=== PATIENT | female | born 1960 | race Caucasian/White ===

== ENCOUNTER 2023-05-26 17:43 | Emergency (ER) | payer MEDICAID ==
[2023-05-26 19:57] LABS: Appearance Cloudy (Clear); Bacteria Many /HPF (None Seen); Bilirubin Negative (Negative); Blood Negative (Negative); Epithelial Cells Few /HPF (None Seen); Glucose, Urine Negative (Negative); Hyaline Casts NONE SEEN /LPF (0-2); Ketones 15 (Negative); Leukocyte Esterase Large (Negative); Nitrite Positive (Negative); Ph 7.5 (4.6-8.0); Protein,Urine Dip Trace (Negative); RBC 0-2 /HPF (0-5); WBC 21-50 /HPF (0-5)
[2023-05-26 19:58] LABS: ADD URINE CULTURE? YES (NO)
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
[2023-05-26 20:08] LABS: Absolute Neutrophil Ct (ANC) 7.59 x10^3/uL (1.4-6.9); BASOPHIL % 0.3 % (0.0-0.4); Basophil (Absolute #) 0.03 x10^3/uL (0-0.4); Hematocrit 33.9 % (35-47); Hemoglobin 10.9 g/dL (12.0-16.0); IMMATURE GRAN # 0.02 x10^3u/L (0.00-0.03); IMMATURE GRAN % 0.2 % (0.00-0.4); Lymphocyte (Absolute #) 1.98 x10^3/uL (1.0-4.6); Mean Cell Volume 88.1 fL (78-100); Mean Corpuscular Hemoglobin 28.3 pg (26-32); Mean Corpuscular Hgb Concent. 32.2 g/dL (32-36); Mean Platelet Volume 10.4 fL (7.5-11.0); Monocyte (Absolute #) 0.69 x10^3/uL (0.0-1.3); Monocytes % 6.6 % (0.0-12.0); Neutrophil % 72.9 % (36.0-66.0); Platelet Count 337 x10^3/uL (150-450); Red Blood Count 3.85 x10^6/uL (4.1-5.4); Red Cell Distribution Width 13.4 % (11.5-14.0); White Blood Count 10.4 x10^3/uL (4.0-10.5)
[2023-05-26] MEDS ORDERED: ROCEPHIN 1 Gm-D5w 50 ml Bag** 1 G/50 ML IVPB IV STA (20:17)
[2023-05-26] MEDS ORDERED: ROCEPHIN 1 Gm-D5w 50 ml Bag** 1 G/50 ML IVPB IV ONE (20:24)
[2023-05-26 20:25] LABS: ALBUMIN 3.7 g/dL (3.5-5.0); ALKALINE PHOSPHATASE 91 U/L (38-126); ANION GAP 11.6 MEQ/L (5-15); BLOOD UREA NITROGEN 24 mg/dL (7-17); CHLORIDE 103 mmol/L (98-107); Calcium 9.1 mg/dL (8.4-10.2); Carbon Dioxide 28 mmol/L (22-30); Creatinine 1 0.76 mg/dL (0.52-1.04); EST GLOMERULAR FILTRATION RATE > 60.0 ML/MIN; Glucose 100 mg/dL (74-106); Potassium 3.6 mmol/L (3.5-5.1); SGOT/AST 20 U/L (14-36); SGPT/ALT 12 U/L (0-35); SODIUM 139 mmol/L (137-145); Total Protein 7.4 g/dL (6.3-8.2)
[2023-05-26 22:08] VITALS: O2SAT 99
[2023-05-26] MEDS ORDERED: Zofran 4 MG/2 ML VIAL ONE (22:34)
[2023-05-26] MEDS ORDERED: Zofran 4 MG/2 ML VIAL IV ONE (22:34)
[2023-05-26 23:22] VITALS: BP 107/80; PULSE 92
--- NOTE | 2023-05-27 08:37 | XRAY ---
Indication: Chest pain. Elevated d-dimer. Multiple contiguous axial images obtained through the chest using 100 cc Isovue 370 contrast and PE protocol. Comparison: None Good opacification of the pulmonary arteries including lobar and segmental branches. No pulmonary embolus. Heart not enlarged. Aorta is normal in course and caliber. No pathologic mediastinal/hilar lymphadenopathy. Lungs inflated and clear. Bony thorax intact with mild degenerative changes throughout the spine and small multilevel Schmorl nodes. CT abdomen/pelvis reported separately. Impression: Negative pulmonary embolus. Degenerative spondylosis and Schmorl nodes. Remaining CT chest with contrast exam is negative.
--- NOTE | 2023-05-27 08:39 | XRAY ---
Indication: Abdomen pain. Constipation. Multiple contiguous axial images obtained through the abdomen and pelvis using 100 cc Isovue 370 contrast. Comparison: None CT chest reported separately. Noncontrasted stomach and bowel loops nonobstructed. There is moderate diffuse scattered colonic fecal debris throughout. Both kidneys enhance and excrete with mild right renal cortical thinning/scarring. No free fluid/air. Remaining liver, gallbladder, pancreas, spleen, adrenal glands, kidneys, ureters, bladder, uterus, and aorta are unremarkable. No pathologic retroperitoneal lymphadenopathy. Osseous structures intact with minimal/mild degenerative changes throughout the visualized spine. No ventral or inguinal hernias. Impression: Right renal cortical thinning/scarring, moderate diffuse fecal stasis, and degenerative spondylosis. Remaining CT abdomen/pelvis with contrast exam is negative.
== END 2023-05-26 23:25 | disposition home or self-care (01) ==
LOC: ED 17:43
DX: N39.0 Urinary tract infection, site not specified (principal); K59.89 Other specified functional intestinal disorders; D50.9 Iron deficiency anemia, unspecified; R07.89 Other chest pain; Z79.899 Other long term (current) drug therapy
CPT/HCPCS: 36000; 36415; 71260; 74177; 80053; 81001; 84484; 85025; 85379; 87077; 87086; 87186; 93005; 93041; 94760; 96365; 96374; 99284; J0696; J2405

== ENCOUNTER 2023-06-05 02:07 | Observation (INO) | payer MEDICAID ==
[2023-06-05] MEDS ORDERED: PROTONIX 40 MG IV IV ONE ×2 (02:30→02:34)
[2023-06-05] MEDS ORDERED: Zofran 4 MG/2 ML VIAL IV ONE (02:30)
[2023-06-05] MEDS ORDERED: Sodium Chloride 0.9% 1000 ML 1,000 ML IV STA ×2 (02:30→03:37)
[2023-06-05] MEDS ORDERED: Pepcid 20 MG VIAL IV ONE ×2 (02:30→02:34)
[2023-06-05] MEDS ORDERED: Sodium Chloride 0.9% 1000 ML 1,000 ML ONE ×2 (02:34→03:42)
[2023-06-05 03:03] LABS: Absolute Neutrophil Ct (ANC) 8.48 x10^3/uL (1.4-6.9); BASOPHIL % 0.2 % (0.0-0.4); Basophil (Absolute #) 0.02 x10^3/uL (0-0.4); Eosinophil % 0.8 % (0.00-5.0); Eosinophil (Absolute #) 0.08 x10^3/uL (0-0.5); Hematocrit 25.8 % (35-47); IMMATURE GRAN # 0.04 x10^3u/L (0.00-0.03); IMMATURE GRAN % 0.4 % (0.00-0.4); Lymphocyte (Absolute #) 1.32 x10^3/uL (1.0-4.6); Lymphocytes % 12.4 % (24.0-44.0); Mean Cell Volume 91.8 fL (78-100); Mean Corpuscular Hemoglobin 28.5 pg (26-32); Mean Platelet Volume 10.3 fL (7.5-11.0); Monocyte (Absolute #) 0.67 x10^3/uL (0.0-1.3); Monocytes % 6.3 % (0.0-12.0); Neutrophil % 79.9 % (36.0-66.0); Platelet Count 337 x10^3/uL (150-450); Red Blood Count 2.81 x10^6/uL (4.1-5.4); Red Cell Distribution Width 13.4 % (11.5-14.0); White Blood Count 10.6 x10^3/uL (4.0-10.5)
[2023-06-05 03:22] LABS: ALBUMIN 3.1 g/dL (3.5-5.0); ALKALINE PHOSPHATASE 72 U/L (38-126); AMYLASE 68 U/L (30-110); ANION GAP 11.3 MEQ/L (5-15); BLOOD UREA NITROGEN 30 mg/dL (7-17); CHLORIDE 106 mmol/L (98-107); Calcium 7.9 mg/dL (8.4-10.2); Carbon Dioxide 26 mmol/L (22-30); Creatinine 1 0.75 mg/dL (0.52-1.04); EST GLOMERULAR FILTRATION RATE > 60.0 ML/MIN; Glucose 109 mg/dL (74-106); LIPASE 110 U/L (23-300); Potassium 3.7 mmol/L (3.5-5.1); SGOT/AST 20 U/L (14-36); SGPT/ALT 14 U/L (0-35); SODIUM 139 mmol/L (137-145); Total Protein 6.2 g/dL (6.3-8.2)
--- NOTE | 2023-06-05 03:37 | ERPHSYRPT ---
- History of Present Illness Time Seen by Provider: 06/05/23 03:32 Historian: patient, EMS Exam Limitations: no limitations Patient Subjective Stated Complaint: vomiting blood Triage Nursing Assessment: pt came into the er via ambulance; pt is axo x3; c/o vomiting; blood tinge emesis present; skin is pale, warm and dry; pt is very anxious; abd is soft; hypoactive bowel sounds in all quads; pt states pain to epigastric region prior to vomiting; pt denies pain at time of arrival; pt denies diarrhea; mucus membranes are pink and moist; hypotensive Physician History: Patient is 62-year-old female with significant past medical history of bipolar depression and recent history of urinary tract infection for which patient was treated with antibiotic. Patient started having nausea and vomiting approximately 1 day ago and today the vomiting turning to bloody vomit. Patient was brought into the emergency room via ambulance. Patient has some flank blood vomiting on 12 well when presented to the emergency room. Patient was also feeling weak and tired. Patient denies any other symptoms including abdominal pain fever chills. Timing/Duration: today Quality: cramping Abdominal Pain Onset Location: epigastric Severity of Pain-Max: mild Severity of Pain-Current: mild Modifying Factors: Improves With: nothing Associated Symptoms: denies symptoms Previous symptoms: no prior history Allergies/Adverse Reactions: No Known Drug Allergies Allergy (Verified 06/05/23 02:09) Home Medications: Fluoxetine HCl [Prozac] 40 mg PO DAILY 05/26/23 [History] buPROPion HCL [Wellbutrin Xl] 300 mg PO DAILY 05/26/23 [History] cephALEXin [Cephalexin] 500 mg PO TID 06/05/23 [History] Hx Tetanus, Diphtheria Vaccination/Date Given: No Hx Influenza Vaccination/Date Given: Yes Hx Pneumococcal Vaccination/Date Given: Yes Travel Risk - International Travel Have you traveled outside of the country in past 3 weeks: No - Coronavirus Screening Are you exhibiting any of the following symptoms?: No Close contact with a COVID-19 positive Pt in past 14-21 Days: No - Vaccine Status Have you recieved a Covid-19 vaccination: Yes [employer] A[employer]: [employer] - Vaccination Dates Date of 2cond Vaccination (if applicable): 2020 - Review of Systems Constitutional: Weakness, No Fever, No Chills Eyes: No Symptoms Ears, Nose, & Throat: No Symptoms Respiratory: No Cough, No Dyspnea Cardiac: No Chest Pain, No Edema, No Syncope Abdominal/Gastrointestinal: Abdominal Pain, Vomiting, Hematemesis, No Nausea, No Diarrhea Genitourinary Symptoms: No Dysuria Musculoskeletal: No Back Pain, No Neck Pain Skin: No Rash Neurological: No Dizziness, No Focal Weakness, No Sensory Changes Psychological: No Symptoms Endocrine: No Symptoms All Other Systems: Reviewed and Negative - Past Medical History Pertinent Past Medical History: Yes Psycho-Social History: Anxiety, Depression - Past Surgical History Past Surgical History: Yes Musculoskeletal: Orthopedic Surgery Other Surgical History: ortho-right knee - Social History Smoking Status: Never smoker Exposure to second hand smoke: Yes Drug Use: none Patient Lives Alone: No - Nursing Vital Signs Nursing Vital Signs: Initial Vital Signs Temperature 98.1 F 06/05/23 02:07 Pulse Rate 88 06/05/23 02:07 Respiratory Rate 18 06/05/23 02:07 Blood Pressure 92/54 06/05/23 02:07 O2 Sat by Pulse Oximetry 97 06/05/23 02:07 Pain Scale Pain Intensity 0 - Physical Exam General Appearance: mild distress, alert Eye Exam: PERRL/EOMI, eyes nml inspection Ears, Nose, Throat Exam: normal ENT inspection, pharynx normal, moist mucous membranes Neck Exam: normal inspection, non-tender, supple, full range of motion Respiratory Exam: normal breath sounds, lungs clear, No respiratory distress Cardiovascular Exam: regular rate/rhythm, normal heart sounds Gastrointestinal/Abdomen Exam: soft, No tenderness, No mass Back Exam: normal inspection, normal range of motion, No CVA tenderness, No vertebral tenderness Extremity Exam: normal inspection, normal range of motion, pelvis stable Neurologic Exam: alert, oriented x 3, cooperative, normal mood/affect, nml cerebellar function, sensation nml, No motor deficits Skin Exam: normal color, warm, dry SpO2: 100 - Course Nursing assessment & vital signs reviewed: Yes Ordered Tests: Active Orders 24 hr Category Date Time Status EKG-ER Only STAT Care 06/05/23 03:37 Active CHEST 1 VIEW (PORTABLE) Stat Exams 06/05/23 03:37 Ordered AMYLASE Stat Lab 06/05/23 03:01 Completed CBC W DIFF Stat Lab 06/05/23 03:01 Completed CMP Stat Lab 06/05/23 03:01 Completed LIPASE Stat Lab 06/05/23 03:01 Completed Medication Summary Generic Name Dose Route Start Last Admin Trade Name Sonal PRN Reason Stop Dose Admin Sodium Chloride 1,000 mls @ 999 mls/hr 06/05/23 03:37 06/05/23 03:43 Sodium Chloride 0.9% 1000 Ml IV 06/05/23 04:37 999 mls/hr .Q1H1M STA Administration Discontinued Medications Generic Name Dose Route Start Last Admin Trade Name Sonal PRN Reason Stop Dose Admin Famotidine 20 mg 06/05/23 02:30 06/05/23 02:39 Famotidine 20 Mg/1 Vial IV 06/05/23 02:31 20 mg STAT ONE Administration Famotidine Confirm 06/05/23 02:34 Famotidine 20 Mg/1 Vial Administered 06/05/23 02:35 Dose 20 mg IV .STK-MED ONE Sodium Chloride 1,000 mls @ 999 mls/hr 06/05/23 02:30 06/05/23 03:41 Sodium Chloride 0.9% 1000 Ml IV 06/05/23 03:30 Infused .Q1H1M STA Infusion Sodium Chloride Confirm 06/05/23 02:34 Sodium Chloride 0.9% 1000 Ml Administered 06/05/23 02:35 Dose 1,000 mls @ ud .ROUTE .STK-MED ONE Sodium Chloride Confirm 06/05/23 03:42 Sodium Chloride 0.9% 1000 Ml Administered 06/05/23 03:43 Dose 1,000 mls @ ud .ROUTE .STK-MED ONE Ondansetron HCl 4 mg 06/05/23 02:30 06/05/23 02:39 Ondansetron Hcl 4 Mg/2 Ml Vial IV 06/05/23 02:31 Not Given STAT ONE Pantoprazole Sodium 40 mg 06/05/23 02:30 06/05/23 02:39 Pantoprazole 40 Mg Vial IV 06/05/23 02:31 40 mg STAT ONE Administration Pantoprazole Sodium Confirm 06/05/23 02:34 Pantoprazole 40 Mg Vial Administered 06/05/23 02:35 Dose 40 mg IV .STK-MED ONE Lab/Rad Data: Laboratory Result Diagrams 06/05/23 03:01 06/05/23 03:01 Laboratory Results 06/05/23 06/05/23 Range/Units 03:01 03:01 WBC 10.6 H (4.0-10.5) x10^3/uL RBC 2.81 L (4.1-5.4) x10^6/uL Hgb 8.0 L (12.0-16.0) g/dL Hct 25.8 L (35-47) % MCV 91.8 (78-100) fL MCH 28.5 (26-32) pg MCHC 31.0 L (32-36) g/dL RDW 13.4 (11.5-14.0) % Plt Count 337 (150-450) x10^3/uL MPV 10.3 (7.5-11.0) fL Gran % 79.9 H (36.0-66.0) % Immature Gran % (Auto) 0.4 (0.00-0.4) % Nucleat RBC Rel Count 0.0 (0.00-0.1) % Eos # (Auto) 0.08 (0-0.5) x10^3/uL Immature Gran # (Auto) 0.04 H (0.00-0.03) x10^3u/L Absolute Lymphs (auto) 1.32 (1.0-4.6) x10^3/uL Absolute Monos (auto) 0.67 (0.0-1.3) x10^3/uL Absolute Nucleated RBC 0.00 (0.00-0.01) x10^3u/L Lymphocytes % 12.4 L (24.0-44.0) % Monocytes % 6.3 (0.0-12.0) % Eosinophils % 0.8 (0.00-5.0) % Basophils % 0.2 (0.0-0.4) % Absolute Granulocytes 8.48 H (1.4-6.9) x10^3/uL Basophils # 0.02 (0-0.4) x10^3/uL Sodium 139 (137-145) mmol/L Potassium 3.7 (3.5-5.1) mmol/L Chloride 106 (98-107) mmol/L Carbon Dioxide 26 (22-30) mmol/L Anion Gap 11.3 (5-15) MEQ/L BUN 30 H (7-17) mg/dL Creatinine 0.75 (0.52-1.04) mg/dL Estimated GFR > 60.0 ML/MIN Glucose 109 H (74-106) mg/dL Calcium 7.9 L (8.4-10.2) mg/dL Total Bilirubin 0.30 (0.2-1.3) mg/dL AST 20 (14-36) U/L ALT 14 (0-35) U/L Alkaline Phosphatase 72 (38-126) U/L Serum Total Protein 6.2 L (6.3-8.2) g/dL Albumin 3.1 L (3.5-5.0) g/dL Amylase 68 (30-110) U/L Lipase 110 (23-300) U/L - Progress Progress: unchanged Discussed with DrRosalinda: Other (hospitalist) Will see patient in: hospital (observation) Counseled pt/family regarding: lab results, diagnosis, need for follow-up Medical Desision Making - Discussion of managment Care discussed with:: hospitalist Agreed on:: Treatment plan, place in obs - Diagnostic Testing Diagnostic test were ordered, analyzed, and reviewed by me: Yes Radiological Interpretation: Reviewed by me - Risk of complications The pt has a mod risk of morbidity or mortality based on: Need for major surgery in otherwise healthy patient The pt has a high risk of morbidity or mortality based on: Need for major surgery in patient with known risk factors - Departure Departure Disposition: Observation Clinical Impression: GI bleed Qualifiers: GI bleed type/associated pathology: gastrointestinal hemorrhage with hematemesis Qualified Code(s): K92.0 - Hematemesis Condition: Fair Critical Care Time: Yes Critical Care Time(excluding separately billable procedures): Critical 30-74 mins Referrals: GUANAKO GARNER MD [Primary Care Provider] - Follow up/PCP as directed
--- NOTE | 2023-06-05 04:27 | PCM.HP ---
History of Present Illness - Chief Complaint Chief Complaint: Hematemesis History of Present Illness: is a 62 year old female with Bipolar disorder on buproprion presented with x/o abd pain, nausea and vomiting blood tinged emesis starting yesterday. 1 week ago, she was placed on Buproprion for the Bipolar disorder. Also around the same time, she had a UTI and was placed on cephalexin. Has been taking both. Had some epigastric pain and started vomiting 1 day ago. In ER, her SBP was 90s, Hgb found to be 8 when it was > 10 prior. She is being admitted for GIB, and ER planning 2 units of pRBC and surgery consult in AM - Review of Systems Constitutional: No Symptoms, Fatigue Eyes: No Symptoms Ears, Nose, & Throat: No Symptoms Respiratory: No Symptoms Cardiac: No Symptoms Abdominal/Gastrointestinal: Abdominal Pain, Nausea, Vomiting, Hematemesis Genitourinary Symptoms: No Symptoms Musculoskeletal: No Symptoms Skin: No Symptoms Neurological: Lethargy Psychological: No Symptoms Endocrine: No Symptoms Hematologic/Lymphatic: No Symptoms Immunological/Allergic: No Symptoms Medications & Allergies Home Medications: Home Medication List Fluoxetine HCl [Prozac] 40 mg PO DAILY 05/26/23 [History Confirmed 06/05/23] buPROPion HCL [Wellbutrin Xl] 300 mg PO DAILY 05/26/23 [History Confirmed 06/05/23] cephALEXin [Cephalexin] 500 mg PO TID 06/05/23 [History Confirmed 06/05/23] Allergies/Adverse Reactions: Allergies Allergy/AdvReac Type Severity Reaction Status Date / Time No Known Drug Allergies Allergy Verified 06/05/23 02:09 - Past Medical History Past Medical History: Yes Neurological History: No Pertinent History ENT History: No Pertinent History Cardiac History: No Pertinent History Respiratory History: No Pertinent History Endocrine Medical History: No Pertinent History Musculoskelatal History: No Pertinent History GI Medical History: No Pertinent History History: No Pertinent History Pyscho-Social History: Anxiety, Depression Reproductive Disorders: No Pertinent History - Female History Are you now?: No - Past Surgical History Past Surgical History: Yes Musculskeletal Surgical Hx: Orthopedic Surgery Other Surgical History: ortho-right knee - Social History Smoking Status: Never smoker Exposure to second hand smoke: Yes Alcohol: None Drug Use: none Significant Family History: no pertinent family hx - Physical Exam Vital Signs: Vital Signs - 24 hr Temp Pulse Resp BP BP Pulse Ox 06/05/23 04:08 83 106/59 100 06/05/23 03:49 100 06/05/23 03:34 89 102/67 99 06/05/23 03:01 80 95/55 100 06/05/23 02:30 94 H 98/61 97 06/05/23 02:29 88 102/62 96 06/05/23 02:18 92/54 06/05/23 02:07 98.1 F 88 18 92/54 97 General Appearance: no apparent distress Neurologic Exam: alert, oriented x 3, cooperative Eye Exam: PERRL/EOMI, eyes nml inspection Ears, Nose, Throat Exam: normal ENT inspection, TMs normal Neck Exam: normal inspection, supple Respiratory Exam: normal breath sounds Cardiovascular Exam: regular rate/rhythm, normal heart sounds Gastrointestinal/Abdomen Exam: soft, normal bowel sounds Pelvic Exam: deferred Rectal Exam: deferred Back Exam: normal inspection Extremity Exam: normal inspection Skin Exam: pale Results - Labs Lab/Micro Results: Lab Results-Last 24 Hours 06/05/23 06/05/23 Range/Units 03:01 03:01 WBC 10.6 H (4.0-10.5) x10^3/uL RBC 2.81 L (4.1-5.4) x10^6/uL Hgb 8.0 L (12.0-16.0) g/dL Hct 25.8 L (35-47) % MCV 91.8 (78-100) fL MCH 28.5 (26-32) pg MCHC 31.0 L (32-36) g/dL RDW 13.4 (11.5-14.0) % Plt Count 337 (150-450) x10^3/uL MPV 10.3 (7.5-11.0) fL Gran % 79.9 H (36.0-66.0) % Immature Gran % (Auto) 0.4 (0.00-0.4) % Nucleat RBC Rel Count 0.0 (0.00-0.1) % Eos # (Auto) 0.08 (0-0.5) x10^3/uL Immature Gran # (Auto) 0.04 H (0.00-0.03) x10^3u/L Absolute Lymphs (auto) 1.32 (1.0-4.6) x10^3/uL Absolute Monos (auto) 0.67 (0.0-1.3) x10^3/uL Absolute Nucleated RBC 0.00 (0.00-0.01) x10^3u/L Lymphocytes % 12.4 L (24.0-44.0) % Monocytes % 6.3 (0.0-12.0) % Eosinophils % 0.8 (0.00-5.0) % Basophils % 0.2 (0.0-0.4) % Absolute Granulocytes 8.48 H (1.4-6.9) x10^3/uL Basophils # 0.02 (0-0.4) x10^3/uL Sodium 139 (137-145) mmol/L Potassium 3.7 (3.5-5.1) mmol/L Chloride 106 (98-107) mmol/L Carbon Dioxide 26 (22-30) mmol/L Anion Gap 11.3 (5-15) MEQ/L BUN 30 H (7-17) mg/dL Creatinine 0.75 (0.52-1.04) mg/dL Estimated GFR > 60.0 ML/MIN Glucose 109 H (74-106) mg/dL Calcium 7.9 L (8.4-10.2) mg/dL Total Bilirubin 0.30 (0.2-1.3) mg/dL AST 20 (14-36) U/L ALT 14 (0-35) U/L Alkaline Phosphatase 72 (38-126) U/L Serum Total Protein 6.2 L (6.3-8.2) g/dL Albumin 3.1 L (3.5-5.0) g/dL Amylase 68 (30-110) U/L Lipase 110 (23-300) U/L - Radiology Impressions Radiology Exams & Impressions: Radiology Procedures Category Date Time Status CHEST 1 VIEW (PORTABLE) Stat Exams 06/05/23 03:37 Ordered Assessment/Plan (1) GI bleed Current Visit: Yes Status: Acute Qualifiers: GI bleed type/associated pathology: gastrointestinal hemorrhage with hematemesis Qualified Code(s): K92.0 - Hematemesis Assessment & Plan: Likely upper GIB given complaint. Unsure etiology. Hgb 8 and she came in with low BP. ER gave IVF, planning 2 units pRBC. Likely will need EGD in AM. Surgery has been consulted, will see in AM. Avoid anti-coag given bleeding concerns. Protonix started Code(s): K92.2 - GASTROINTESTINAL HEMORRHAGE, UNSPECIFIED (2) Microcytic anemia Current Visit: No Status: Acute Assessment & Plan: As above, Hgb 8 - planning 2 units pRBC as she is having hemodynamic changes from GIB. Code(s): D50.9 - IRON DEFICIENCY ANEMIA, UNSPECIFIED (3) Azotemia Current Visit: Yes Status: Acute Assessment & Plan: BUN 30, Cr <1. Elevated BUN due to pre-renal and can be contributed by UGIB. Monitor with IVF and management of UGIB Code(s): R79.89 - OTHER SPECIFIED ABNORMAL FINDINGS OF BLOOD CHEMISTRY (4) Nausea and vomiting Current Visit: Yes Status: Acute Assessment & Plan: Likely caused by UGIB. Zofran prn Code(s): R11.2 - NAUSEA WITH VOMITING, UNSPECIFIED (5) Bipolar 1 disorder Current Visit: Yes Status: Acute Assessment & Plan: Can resume buproprion. She is stable Code(s): F31.9 - BIPOLAR DISORDER, UNSPECIFIED Telemedicine Encounter - Telemedicine Encounter Telemedicine Encounter: The entirety of this encounter was performed via Telemedicine" The pt gave me verbal consent to have this telemedicine visit
[2023-06-05] MEDS ORDERED: TYLENOL 325 MG PO PRN (04:40)
[2023-06-05] MEDS ORDERED: Sodium Chloride 0.9% 1000 ML 1,000 ML IV SCH (04:45)
[2023-06-05] MEDS ORDERED: Zofran 4 MG/2 ML VIAL IV PRN (05:03)
[2023-06-05 05:32] LABS: ABO TYPING O; Antibody Screen NEGATIVE (NEGATIVE); RH TYPING POSITIVE
[2023-06-05 05:34] LABS: CROSS MATCH (PRBC) COMPATIBLE (COMPATIBLE)
[2023-06-05] MEDS ORDERED: Sodium Chloride 0.9% 500 ML 500 ML IV ONE (05:40)
--- NOTE | 2023-06-05 08:07 | XRAY ---
Indication: Weakness and vomiting. Comparison: None Portable chest demonstrates normal heart and lungs. Bony thorax intact with mild degenerative changes.
[2023-06-05] MEDS ORDERED: NORCO 5/325 MG PO PRN (09:27)
[2023-06-05] MEDS: Pepcid 20 MG VIAL IV SCH ×2 (09:49→21:45)
[2023-06-05] MEDS ORDERED: PROTONIX 40 MG IV IV SCH (10:00)
[2023-06-05 13:58] LABS: Hemoglobin 9.4 g/dL (12.0-16.0)
[2023-06-05] MEDS: Sodium Chloride 0.9% 1000 ML 1,000 ML IV SCH (16:02)
[2023-06-05] MEDS ORDERED: Lactated Ringers 1,000 ML IV ONE (18:32)
[2023-06-05] MEDS ORDERED: Lactated Ringers 1,000 ML IV SCH (19:00)
[2023-06-05] MEDS ORDERED: DIPRIVAN 200 MG/20 ML IV ONE (19:08)
[2023-06-05 21:24] LABS: Hemoglobin 9.8 g/dL (12.0-16.0); Mean Corpuscular Hemoglobin 29.1 pg (26-32); Mean Corpuscular Hgb Concent. 31.6 g/dL (32-36); Mean Platelet Volume 9.9 fL (7.5-11.0); Platelet Count 292 x10^3/uL (150-450); Red Blood Count 3.37 x10^6/uL (4.1-5.4); Red Cell Distribution Width 14.3 % (11.5-14.0); White Blood Count 6.3 x10^3/uL (4.0-10.5)
[2023-06-05] MEDS: Protonix 40MG Tablet PO SCH (21:45)
[2023-06-05] MEDS: Carafate 1 GM PO SCH (21:45)
[2023-06-06] MEDS: Sodium Chloride 0.9% 1000 ML 1,000 ML IV SCH (05:04)
[2023-06-06 06:54] LABS: Hematocrit 27.5 % (35-47); Hemoglobin 8.8 g/dL (12.0-16.0); Mean Cell Volume 91.1 fL (78-100); Mean Corpuscular Hemoglobin 29.1 pg (26-32); Platelet Count 268 x10^3/uL (150-450); Red Blood Count 3.02 x10^6/uL (4.1-5.4); Red Cell Distribution Width 14.6 % (11.5-14.0); White Blood Count 6.2 x10^3/uL (4.0-10.5)
[2023-06-06 07:11] LABS: ALBUMIN 2.5 g/dL (3.5-5.0); ALKALINE PHOSPHATASE 66 U/L (38-126); ANION GAP 7.6 MEQ/L (5-15); BLOOD UREA NITROGEN 15 mg/dL (7-17); CHLORIDE 109 mmol/L (98-107); Calcium 7.7 mg/dL (8.4-10.2); Carbon Dioxide 25 mmol/L (22-30); Creatinine 1 0.72 mg/dL (0.52-1.04); EST GLOMERULAR FILTRATION RATE > 60.0 ML/MIN; Glucose 88 mg/dL (74-106); Potassium 3.6 mmol/L (3.5-5.1); SGOT/AST 16 U/L (14-36); SGPT/ALT 11 U/L (0-35); SODIUM 138 mmol/L (137-145); Total Protein 5.2 g/dL (6.3-8.2)
[2023-06-06] MEDS: Carafate 1 GM PO SCH ×2 (07:53→12:04)
[2023-06-06] MEDS ORDERED: Wellbutrin XL 150 MG PO SCH (10:00)
[2023-06-06] MEDS ORDERED: Prozac 20 MG PO SCH (10:00)
[2023-06-06] MEDS ORDERED: NON-FORMULARY ITEM (Bupropion Hcl [Wellbutrin Xl] 300 MG Tab.Er.24h) PO SCH (10:00)
[2023-06-06] MEDS ORDERED: NON-FORMULARY ITEM (Fluoxetine Hcl [Prozac] 40 MG Capsule) PO SCH (10:00)
[2023-06-06] MEDS: Protonix 40MG Tablet PO SCH (10:46)
[2023-06-06] MEDS: Pepcid 20 MG VIAL IV SCH (10:46)
[2023-06-06 11:47] VITALS: BP 100/59; PULSE 77; RESP 16; TEMP 97.4; O2SAT 99
--- NOTE | 2023-06-07 06:47 | PCM.DS ---
Discharge Summary Date of Admission: 06/05/23 04:56 Date of Discharge: 06/06/23 Admitting Physician: CRISTINO MENDOZA DO Consults: Consults on Case 06/05/23 05:03 Consult Surgery ROUTINE Primary Care Provider: GAUNAKO GARNER MD Allergies Allergies No Known Drug Allergies Allergy (Verified 06/05/23 02:09) Hospital Summary - Hospital Course Hospital Course: EGD revealed ulcer, GI recommended sucralafate and PPI; patient tolerating PO, Hgb stable; grandson is EMS, shed like to go home, has fu with GI - Vitals & Intake/Output Vital Signs: Vital Signs Temperature 97.4 F 06/06/23 11:00 Pulse Rate 77 06/06/23 11:00 Respiratory Rate 16 06/06/23 11:00 Blood Pressure 100/59 06/06/23 11:00 O2 Sat by Pulse Oximetry 99 06/06/23 11:00 Intake & Output: Intake & Output 06/04/23 06/05/23 06/06/23 06/07/23 11:59 11:59 11:59 11:59 Intake Total 0 2562 240 Balance 0 2562 240 Weight 60.6 kg 65.1 kg - Lab Result Diagrams: 06/06/23 06:37 06/06/23 06:37 Lab Results-Last 24 Hrs: Lab Results-Last 24 Hours 06/06/23 06/06/23 Range/Units 06:37 06:37 WBC 6.2 (4.0-10.5) x10^3/uL RBC 3.02 L (4.1-5.4) x10^6/uL Hgb 8.8 L (12.0-16.0) g/dL Hct 27.5 L (35-47) % MCV 91.1 (78-100) fL MCH 29.1 (26-32) pg MCHC 32.0 (32-36) g/dL RDW 14.6 H (11.5-14.0) % Plt Count 268 (150-450) x10^3/uL MPV 10.0 (7.5-11.0) fL Sodium 138 (137-145) mmol/L Potassium 3.6 (3.5-5.1) mmol/L Chloride 109 H (98-107) mmol/L Carbon Dioxide 25 (22-30) mmol/L Anion Gap 7.6 (5-15) MEQ/L BUN 15 (7-17) mg/dL Creatinine 0.72 (0.52-1.04) mg/dL Estimated GFR > 60.0 ML/MIN Glucose 88 (74-106) mg/dL Calcium 7.7 L (8.4-10.2) mg/dL Total Bilirubin 0.30 (0.2-1.3) mg/dL AST 16 (14-36) U/L ALT 11 (0-35) U/L Alkaline Phosphatase 66 (38-126) U/L Serum Total Protein 5.2 L (6.3-8.2) g/dL Albumin 2.5 L (3.5-5.0) g/dL Discharge Exam General Appearance: no apparent distress Neurologic Exam: alert, oriented x 3, cooperative Neck Exam: normal inspection Cardiovascular Exam: normal heart sounds Gastrointestinal/Abdomen Exam: soft, normal bowel sounds Final Diagnosis/Problem List - Final Discharge Diagnosis/Problem (1) GI bleed Status: Acute Assessment & Plan: (1) GI bleed Current Visit: Yes Status: Acute Qualifiers: GI bleed type/associated pathology: gastrointestinal hemorrhage with phil temesis Qualified Code(s): K92.0 - Hematemesis Assessment & Plan: Likely upper GIB given complaint. Unsure etiology. Hgb 8 and she came in with low BP. ER gave IVF, received 2u pRBC; LEGD shows ulcer; GI recommended PPI and sucralafate,. Avoid anti-coag given bleeding concerns. Protonix started Code(s): K92.2 - GASTROINTESTINAL HEMORRHAGE, UNSPECIFIED (2) Microcytic anemia Current Visit: No Status: Acute Assessment & Plan: Hgb stable for two days after transfusions Code(s): D50.9 - IRON DEFICIENCY ANEMIA, UNSPECIFIED (3) Azotemia Current Visit: Yes Status: Acute Assessment & Plan: BUN 30, Cr <1. Elevated BUN due to pre-renal and can be contributed by UGIB. Monitor with IVF and management of UGIB Code(s): R79.89 - OTHER SPECIFIED ABNORMAL FINDINGS OF BLOOD CHEMISTRY (4) Nausea and vomiting Current Visit: Yes Status: Acute Assessment & Plan: Likely caused by UGIB. Zofran prn Code(s): R11.2 - NAUSEA WITH VOMITING, UNSPECIFIED (5) Bipolar 1 disorder Current Visit: Yes Status: Acute Assessment & Plan: Can resume buproprion. She is stable Code(s): F31.9 - BIPOLAR DISORDER, UNSPECIFIED Code(s): K92.2 - GASTROINTESTINAL HEMORRHAGE, UNSPECIFIED Telemedicine Encounter - Telemedicine Encounter Telemedicine Encounter: The entirety of this encounter was performed via Telemedicine" - Discharge Disposition: Home, Self-Care Condition: Fair Prescriptions: New Sucralfate 1 gm [Carafate 1 GM] 1 g PO ACHS 30 Days #120 tablet PANTOPRAZOLE 40 mg Tablet [Protonix 40MG Tablet] 40 mg PO BID 30 Days #60 tablet Continue buPROPion HCL [Wellbutrin Xl] 300 mg PO DAILY Fluoxetine HCl [Prozac] 40 mg PO DAILY cephALEXin [Cephalexin] 500 mg PO TID Instructions: Peptic ulcers Additional Instructions: PLEASE CALL TOMORROW AND MAKE A FOLLOWUP APPT WITH YOUR PRIMARY CARE PROVIDER.
--- NOTE | 2023-06-07 12:38 | OP ---
SURGERY DATE/TIME: 06/05/20231907 PREOPERATIVE DIAGNOSIS: Acute anemia probable GI bleed. POSTOPERATIVE DIAGNOSIS: A half dollar sized full thickness ulceration of the lesser curvature of the stomach in the mid body. PROCEDURE: EGD with multiple biopsies of this ulcer. SURGEON: Justen Bedolla M.D. ANESTHESIA: MAC. COMPLICATIONS: None. CONDITION: Stable. DESCRIPTION OF PROCEDURE: The patient was brought to endoscopy. MAC sedation provided. Scope introduced. Pharyngoesophageal junction normal. Vocal cords normal. Esophagus down to gastroesophageal junction a 1 inch hiatal hernia. Grade 2 over 4 gastroesophageal reflux disease. Fundus satisfactory. Initially, no blood was seen. Pylorus normal. Duodenal bulb, second portion of duodenum normal. Scope withdrawn looped upon itself. Just a slight bloody tinged area on the lesser curve. As this was inspected, it was clear that the mucosa was totally gone for about half dollar sized area. At least five biopsies were obtained at the rim of this ulcer. It was not actively bleeding but it has been bleeding within just a few days. Scope withdrawn. The patient tolerated the procedure satisfactorily. The patient is to take some Protonix and Carafate.
== END 2023-06-06 14:27 | disposition home or self-care (01) ==
LOC: ED 02:07 → MED SURG 04:56
PROVIDERS: ADMIT Internal Medicine; ATTEND Internal Medicine
DX: K92.0 Hematemesis (principal); D50.9 Iron deficiency anemia, unspecified; K25.9 Gastric ulcer, unspecified as acute or chronic, without hemorrhage or perforation; K44.9 Diaphragmatic hernia without obstruction or gangrene; K21.9 Gastro-esophageal reflux disease without esophagitis; R79.89 Other specified abnormal findings of blood chemistry; F31.9 Bipolar disorder, unspecified; Z79.899 Other long term (current) drug therapy; Z20.828 Contact with and (suspected) exposure to other viral communicable diseases
CPT/HCPCS: 36415; 36430; 43239; 71045; 80053; 82150; 83690; 85014; 85018; 85025; 85027; 86850; 86900; 86901; 86922; 93005; 93268; 96360; 96361; 96374; 99284; 99291; G0378; P9016; J2704; Q3014; A9270-GY

== ENCOUNTER 2024-08-24 07:25 | Day surgery (SDC) | payer MEDICARE, OTHER ==
--- NOTE | 2024-08-22 17:46 | HP ---
HISTORY AND PHYSICAL HISTORY OF PRESENT ILLNESS: The patient is a 64-year-old female who presents with some complaints of having ulcers back in April. She was supposed to be scheduled for a colonoscopy. She could not get her prep down. She complains of diarrhea. She is having trouble getting cleaned up after a bowel movement. She denies any rectal bleeding. PAST MEDICAL HISTORY: GERD, bipolar disease, history of ulcers. HOME MEDICATIONS: Fluoxetine, omeprazole, meclizine, bupropion. ALLERGIES: Negative. PAST SURGICAL HISTORY: Knee replacement. SOCIAL HISTORY: Negative. FAMILY HISTORY: None. REVIEW OF SYSTEMS: CONSTITUTIONAL: Denies fever or chills. CHEST: Denies shortness of breath. CARDIOVASCULAR: Denies chest pain. ABDOMEN: Denies abdominal pain. PHYSICAL EXAMINATION: GENERAL: No acute distress. CARDIOVASCULAR: Regular rate and rhythm. RESPIRATORY: Nonlabored. No shortness of breath. ABDOMEN: Soft. IMPRESSION: History of gastric ulcers, epigastric pain, diarrhea. PLAN: EGD, colonoscopy with Dr. Justen Bedolla This report was dictated for Dr. Bedolla by Lacey Chowdhury NP.
[2024-08-24 07:46] VITALS: RESP 18
[2024-08-24] MEDS ORDERED: Lactated Ringers 1,000 ML IV ONE (07:47)
[2024-08-24] MEDS: Lactated Ringers 1,000 ML IV SCH (08:05)
[2024-08-24 10:40] VITALS: TEMP 97.9
[2024-08-24 10:45] VITALS: BP 111/59; PULSE 83; O2SAT 97
--- NOTE | 2024-08-25 17:30 | OP ---
SURGERY DATE/TIME: 08/24/2024 [id number] PREOPERATIVE DIAGNOSIS: Patient has history of recent peptic ulcer disease requiring followup. She also has new diarrhea requiring C-scope. She has not had a recent colonoscopic examination POSTOPERATIVE DIAGNOSES: 1) Chronic gastritis. The previous ulcer disease has healed. 2) Patient has a grossly normal colonoscopic examination to the cecum. Stool was taken with stool trap for Clostridium difficile, ovum and parasite and stool pathogens. PROCEDURE: EGD and colonoscopy. SURGEON: Justen Bedolla M.D. DESCRIPTION OF PROCEDURE: Patient was taken to endoscopy. Left lateral decubitus position. Scope introduced. Pharyngoesophageal junction normal. Esophagus normal down to EG junction. EG junction satisfactory. Fundus satisfactory. Body and antrum had an old chronic gastritis. The ulcer disease had healed. Antrum 1 representative phlebotomy services cold biopsy. Pylorus normal. Duodenal bulb normal. Second portion normal. Scope withdrawn back in the stomach. Just a minimal hiatal hernia. Scope was withdrawn. Anal digital examination was satisfactory. Scope: The colon was a little wide, a little meandering and a little difficult to scope. Despite this, the base of the cecum was recognized. Base of the cecum, ileocecal valve, appendiceal orifice. There was a marked alarcon hue also to the last 6 to 8 inches of this right colon. This was irrigated, washed and material obtained for C difficile, O and P and stool pathogens. No mucosal lesions were noted. On circumferential withdrawal, no mucosal lesions were noted. IMPRESSION: Grossly normal colon. Stool was collected for C difficile, O and P and stool pathogens.
== END 2024-08-24 10:58 | disposition home or self-care (01) ==
LOC: SDC 07:25
PROVIDERS: ATTEND Surgery
DX: K29.70 Gastritis, unspecified, without bleeding (principal); K27.9 Peptic ulcer, site unspecified, unspecified as acute or chronic, without hemorrhage or perforation; R19.7 Diarrhea, unspecified; K29.50 Unspecified chronic gastritis without bleeding; K44.9 Diaphragmatic hernia without obstruction or gangrene
CPT/HCPCS: 87045; 87046; 87177; 87209; 87328; 87329; 87427; J1610; J2704

== ENCOUNTER 2025-01-07 18:31 | Emergency (ER) | payer MEDICARE, OTHER ==
[2025-01-07 18:48] VITALS: PULSE 89; TEMP 98.8; O2SAT 96
--- NOTE | 2025-01-07 19:08 | XRAY ---
Indication: Cough. Comparison: June 05, 2023 Portable chest remains inflated and clear. Heart not enlarged. Bony thorax intact again with mild degenerative changes. No new/acute findings.
[2025-01-07 19:24] LABS: Group A Strep NOT DETECTED (NEGATIVE)
[2025-01-07 19:36] LABS: INFLUENZA A NEGATIVE (NEGATIVE); INFLUENZA B NEGATIVE (NEGATIVE); RESPIRATORY SYNCTIAL VIRUS NEGATIVE (NEGATIVE)
[2025-01-07 19:48] LABS: SARS-CoV-2 Xpert Express POSITIVE (NEGATIVE)
--- NOTE | 2025-01-07 21:56 | ERPHSYRPT ---
- History of Present Illness Source: patient Exam Limitations: no limitations Patient Subjective Stated Complaint: pt c/o of sore throat, headache, cough, runny nose, fell yesterday on the right hip and has pain there Triage Nursing Assessment: Pt brought to the ER by her daughter, vitals wnl, rates overall pain as 5/10, pulses normal, skin n/w/d, no difficulty breathing, denies chest pain, walked into the ER holding onto her daughter, daughter thinks that she may have an ear infections, doesn't appear to be in any distress Physician History: Patient has nasal congestionAnd cough. She is not having shortness of breath. She also has a sore throat. She is in no distress. Symptoms been going on for about 2 days. She does not have any fever or chills at this time but she has had some earlier. Her appetite is good. She is not having nausea or vomiting. She is in no distress Allergies/Adverse Reactions: No Known Drug Allergies Allergy (Verified 01/07/25 18:45) Home Medications: Fluoxetine HCl [Prozac] 40 mg PO DAILY 05/26/23 [History] buPROPion HCL [Wellbutrin Xl] 300 mg PO DAILY 05/26/23 [History] Meclizine HCl 25 mg [Antivert 25 mg] 25 mg PO DAILY PRN PRN 04/05/24 [History] Hx Tetanus, Diphtheria Vaccination/Date Given: No Hx Influenza Vaccination/Date Given: Yes Hx Pneumococcal Vaccination/Date Given: No Travel Risk - International Travel Have you traveled outside of the country in past 3 weeks: No - Emerging Infectious Disease Are you exhibiting symptoms associated with any current EIDs: No - Review of Systems Constitutional: Chills, Malaise Ears, Nose, & Throat: Nose Congestion Respiratory: No Symptoms, Cough Abdominal/Gastrointestinal: No Symptoms All Other Systems: Reviewed and Negative - Past Medical History Pertinent Past Medical History: Yes Neurological History: No Pertinent History ENT History: No Pertinent History Cardiac History: No Pertinent History Respiratory History: No Pertinent History Endocrine Medical History: No Pertinent History Musculoskeletal History: No Pertinent History GI Medical History: GERD, GI Bleed, Ulcer History: No Pertinent History Psycho-Social History: Anxiety, Bipolar, Depression Female Reproductive Disorders: No Pertinent History - Past Surgical History Past Surgical History: Yes Neuro Surgical History: No Pertinent History Cardiac: No Pertinent History Respiratory: No Pertinent History Gastrointestinal: No Pertinent History Genitourinary: No Pertinent History Musculoskeletal: Orthopedic Surgery Female Surgical History: No Pertinent History Other Surgical History: ortho-right knee Significant Family History: no pertinent family hx - Social History Smoking Status: Never smoker Exposure to second hand smoke: No Drug Use: none - Social Determinants of Health Will the patient participate in the screening: Yes Do you worry about a steady place to live?: No Do you have any problems with any of the following?: No known problems In the past 12 months,have you had to go without utilities?: No Transportation Issues: No Has anyone in your support network made you feel unsafe?: No Have you or anyone in your house had to go w/o enough food: No - Nursing Vital Signs Nursing Vital Signs: Initial Vital Signs Blood Pressure 112/71 01/07/25 18:38 O2 Sat by Pulse Oximetry 95 01/07/25 18:38 Pain Scale Pain Intensity 5 - Physical Exam General Appearance: no apparent distress Eye Exam: PERRL/EOMI Respiratory Exam: normal breath sounds Cardiovascular Exam: regular rate/rhythm, normal heart sounds Gastrointestinal/Abdomen Exam: soft, normal bowel sounds, No tenderness, No distention Neurologic Exam: alert, oriented x 3 Skin Exam: normal color, warm, dry SpO2: 96 - Course Nursing assessment & vital signs reviewed: Yes Ordered Tests: Active Orders 24 hr Category Date Time Status CHEST 1 VIEW (PORTABLE) Stat Exams 01/07/25 19:01 Completed Lab/Rad Data: Laboratory Results 01/07/25 Range/Units 18:57 Influenza Type A Ag NEGATIVE (NEGATIVE) Influenza Type B Ag NEGATIVE (NEGATIVE) RSV (PCR) NEGATIVE (NEGATIVE) SARS-CoV-2 (PCR) POSITIVE A (NEGATIVE) Group A Strep Antibody NOT DETECTED (NEGATIVE) - Progress Progress: re-examined, unchanged Air Movement: good Progress Note: On the differential was COVID flu RSV bronchitis and upper respiratory infection. She was COVIDPositive. I am going to start her on Paxlovid. She is also to treat symptomatically with Tylenol and Advil. 01/07/25 21:55 - Departure Departure Disposition: Home Clinical Impression: COVID-19 Condition: Stable Critical Care Time: No Referrals: GUANAKO GARNER MD [Primary Care Provider] - Follow up/PCP as directed Prescriptions: Nirmatrelvir/Ritonavir [Paxlovid 150-100 mg Pack (Eua) (Renal Dosing)] 1 each PO BID #10
[2025-01-07 22:09] VITALS: BP 104/55; RESP 18
== END 2025-01-07 22:10 | disposition home or self-care (01) ==
LOC: ED 18:31
DX: U07.1 COVID-19 (principal); R05.1 Acute cough; J02.9 Acute pharyngitis, unspecified; Z79.899 Other long term (current) drug therapy
CPT/HCPCS: 0241U; 71045; 87651; 99284; 99283